=== PATIENT | male | born 1970 | race Caucasian/White ===

== ENCOUNTER 2016-06-14 19:58 | Emergency (ER) | payer MEDICAID ==
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
--- NOTE | 2016-06-14 21:03 | CPEKG ---
Heart Rate: 77 RR Interval: 779 P-R Interval: 184 QRSD Interval: 104 QT Interval: 412 QTC Interval: 467 P Cardale: 59 QRS Cardale: -17 T Wave Cardale: 50 EKG Severity - OTHERWISE NORMAL ECG - EKG Impression: SINUS RHYTHM EKG Impression: BORDERLINE LEFT AXIS DEVIATION Electronically Signed By: Lola Trent 14-Jun-2016 22:36:51
[2016-06-14 21:14] LABS: ANION GAP 17 mEq/L (8-16); CALCIUM 8.7 mg/dL (8.5-10.4); CARBON DIOXIDE 23 mEq/l (22-31); CHLORIDE 106 mEq/L (97-110); CREATININE 0.7 mg/dL (0.7-1.3); GLOMERULAR FILTRATION RATE > 60; GLUCOSE 84 mg/dL (70-100); POTASSIUM 5.4 mEq/L (3.5-5.2); SODIUM 146 mEq/L (134-144); SPECIMEN HEMOLYSIS 163
[2016-06-14 21:22] LABS: ETHANOL SERUM 336 mg/dL (0-10)
[2016-06-14 22:10] LABS: % IMMATURE GRANULYOCYTES 0.3 % (0.0-1.1); ABSOLUTE IMMATURE GRANULOCYTES 0.02 10^3/uL (0.00-0.10); ADD DIFF? NO; ADD MORPH? NO; ADD SCAN? NO; ATYPICAL LYMPHOCYTE FLAG 30 (0-99); FRAGMENT RBC FLAG 0 (0-99); HEMATOCRIT 48.4 % (40.0-51.0); HEMOGLOBIN 17.1 g/dL (13.7-17.5); LEFT SHIFT FLG 0 (0-99); LIPEMIA HEMOLYSIS FLAG 90 (0-99); MEAN CELL HEMOGLOBIN 32.8 pg (27.9-34.1); MEAN CELL HEMOGLOBIN CONCENTR. 35.3 g/dL (32.4-36.7); MEAN CELL VOLUME 92.7 fL (81.5-99.8); MEAN PLATELET VOLUME 9.4 fL (8.7-11.7); PLATELET CLUMPS FLAG 0 (0-99); PLATELET COUNT 180 10^3/uL (150-400); RED BLOOD CELL COUNT 5.22 10^6/uL (4.40-6.38); RED CELL DISTRIBUTION WIDTH 13.2 % (11.5-15.2)
[2016-06-15 04:07] VITALS: RESP 16
[2016-06-15 04:42] VITALS: TEMP 98.1
[2016-06-15 06:34] VITALS: BP 129/81; PULSE 91; O2SAT 94
== END 2016-06-15 06:35 | disposition home or self-care (01) ==
LOC: EDUNIT#
DX: F10.120 Alcohol abuse with intoxication, uncomplicated (principal); F17.200 Nicotine dependence, unspecified, uncomplicated
CPT/HCPCS: G0480

== ENCOUNTER 2016-07-12 13:24 | Emergency (ER) | payer MEDICAID ==
[2016-07-12 13:53] VITALS: RESP 16
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
[2016-07-12] MEDS ORDERED: HYDROCODONE/APAP 5/325 TAB PO ONE (16:08)
[2016-07-12] MEDS ORDERED: HYDROCODONE/APAP 5/325 TAB ONE (16:09)
[2016-07-12 16:55] VITALS: BP 121/97; PULSE 127; TEMP 97.9; O2SAT 92
== END 2016-07-12 16:55 | disposition home or self-care (01) ==
LOC: EDUNIT#
DX: H92.01 Otalgia, right ear (principal); R51 Headache; F17.200 Nicotine dependence, unspecified, uncomplicated

== ENCOUNTER 2016-07-19 04:01 | Emergency (ER) | payer MEDICAID ==
[2016-07-19 02:59] VITALS: RESP 18
--- NOTE | 2016-07-19 05:11 | EDPHY ---
H & P Stated Complaint: migraine +photophobia, hx of migraines for months HPI/ROS: HPI CHIEF COMPLAINT: "I AM HAVING A MIGRAINE HEADACHE" HISTORY OF PRESENT ILLNESS: this patient 46-year-old male, homeless, presents emergency room for migraine headache. Patient tells me that he has had a migraine headache for months. He tells me that he came into the emergency room this evening due to the headache going on for 24 hours. He is tells me that he is at the homeless correction. He states from the mid he woke up this morning he has had a burning sensation headache across the top of his head. He tells me this is exactly like his previous migraine headaches. He has endorse photophobia however denies nausea vomiting. Denies neck pain, denies stiff neck , denies fever, denies chest pain or shortness of breath denies trauma. Of note this patient was just here in the emergency room at the end of June for trauma to his ear for many ear bud. Past Medical History: Migraine headaches, scrotal cellulitis Past Surgical History: Wrist surgery Social History: Homeless, denies illicit drug use alcohol tobacco products Family History: noncontributory ROS REVIEW OF SYSTEMS: A comprehensive 10 point review of systems is otherwise negative aside from elements mentioned in the history of present illness. Exam Constitutional triage nursing summary reviewed, vital signs reviewed, awake/ alert. Eyes normal conjunctivae and sclera, EOMI, PERRLA. HENT normal inspection, atraumatic, moist mucus membranes, no epistaxis, neck supple/ no meningismus, no raccoon eyes. Respiratory clear to auscultation bilaterally, normal breath sounds, no respiratory distress, no wheezing. Cardiovascular rate normal, regular rhythm, no murmur, no edema, distal pulses normal. Gastrointestinal soft, non-tender, no rebound, no guarding, normal bowel sounds, no distension, no pulsatile mass. Genitourinary no CVA tenderness. Musculoskeletal no midline vertebral tenderness, full range of motion, no calf swelling, no tenderness of extremities, no meningismus, good pulses, neurovascularly intact. Skin pink, warm, & dry, no rash, skin atraumatic. Neurologic awake, alert and oriented x 3, AAOx3, moves all 4 extremities equally, motor intact, sensory intact, CN II-XII intact, normal cerebellar, normal vision, normal speech. Psychiatric normal mood/affect. Heme/Lymph/Immune no lymphadenopathy. Differential Diagnosis: Includes but is not limited to in a particular order, migraine headache, tension headache, cluster headache, intracranial bleed, brain tumor, no evidence of meningitis. Medical Decision Making: This patient had an IV established be medicated with migraine medications however no narcotics, he will receive IV fluids, Toradol, Decadron, Reglan, Benadryl. And will re-evaluate him. He will have a CT scan of his head to rule out significant abnormality that may cause a headache including brain bleed or tumor. However his neurological exam is unremarkable it is unlikely that he has a tumor or bleed. And his story is similar to his previous migraines. Re-evaluation: CT scan of the head without IV contrast. The results of the study are negative for anything acute specifically no tumor bleed. The study was read by Dr. Herrera I viewed the images myself on the PACS system. 0611: re-evaluation at this time this patient is resting comfortably his headache is greatly improved. He tells me initially was 9/10 it is now 2/10 after migraine cocktail. His neurological exam is unremarkable specifically is no focal neuro deficit. His CT scan head is unremarkable. Vital signs are stable. He is agreeable discharge home. He does understand if he develops worsening headache, fever, vomiting or any worsening symptoms questions concerns he should return to the ER. Source: Patient - Personal History Current Tetanus/Diphtheria Vaccine: Unsure Current Tetanus Diphtheria and Acellular Pertussis (TDAP): Unsure Tetanus Vaccine Date: < 10 years - Medical/Surgical History Hx Asthma: No Hx Chronic Respiratory Disease: No Hx Diabetes: No Hx Cardiac Disease: No Hx Renal Disease: No Hx Cirrhosis: No Hx Alcoholism: No Hx HIV/AIDS: No Hx Splenectomy or Spleen Trauma: No Other PMH: PMH: Anxiety, depression, CHI, migraines. PSH: RIGHT WRIST SURGERY - Social History Smoking Status: Current every day smoker Constitutional: Initial Vital Signs Temperature (C) 36.4 C 07/19/16 02:49 Heart Rate 90 07/19/16 02:49 Respiratory Rate 18 07/19/16 02:49 Blood Pressure 161/94 H 07/19/16 02:49 O2 Sat (%) 93 07/19/16 02:49 O2 Delivery Mode Room Air Allergies/Adverse Reactions: No Known Allergies Allergy (Verified 07/19/16 02:55) Home Medications: Medication Instructions Recorded Ibuprofen [Motrin (*)] 800 mg PO Q6-8PRN #7 tab 07/19/16 Departure - Departure Disposition: Home, Routine, Self-Care Clinical Impression: Migraine Qualifiers: Migraine type: unspecified Status migrainosus presence: without status migrainosus Intractability: not intractable Qualifier Code: (G43.909) Migraine, unspecified, not intractable, without status migrainosus Condition: Good Instructions: Migraine Headache (ED) Additional Instructions: 1. Stay well-hydrated drink lots of fluids. 2. stay in a very low stimulus environment. 3. Return emergency room if develops severe pain nausea vomiting. Referrals: Ann-Marie Lane MD [Primary Care Provider] - As per Instructions Prescriptions: Ibuprofen [Motrin (*)] 800 mg PO Q6-8PRN #7 tab
[2016-07-19] MEDS ORDERED: ONDANSETRON 4 MG/2 ML VIAL IVP ONE (05:19)
[2016-07-19] MEDS ORDERED: METOCLOPRAMIDE 10 MG/2 ML VIAL IVP ONE (05:19)
[2016-07-19] MEDS ORDERED: NS 1,000 ML IV ONE (05:19)
[2016-07-19] MEDS ORDERED: DEXAMETHASONE 10 MG/ML VIAL IVP ONE (05:19)
[2016-07-19] MEDS ORDERED: KETOROLAC 30 MG/1 ML SDV IVP ONE (05:19)
[2016-07-19 07:28] VITALS: BP 136/80; PULSE 74; TEMP 98.6; O2SAT 97
--- NOTE | 2016-07-19 13:46 | CT ---
Unenhanced CT Scan of the Brain Clinical History: 46-year-old male presenting to the ED complaining of a migraine headache for 24 hours and photophobia. Technique: Standard unenhanced axial CT images were acquired from the skull base to the skull vertex, reformatted at 5.00- and 1.50-mm increments, and reviewed in bone, brain, and subdural windows. The DFOV is 25.7 cm. Sagittal and paracoronal reconstructed images were reviewed on the workstation. A dose reduction protocol was used. Comparison study: Unenhanced CT scan of the brain, dated April 07, 2016. Findings: Again, the ventricles and basilar cisterns are normal in size and symmetrical in configuration. There is no midline shift, or other evidence of mass effect. There is no acute or subacute abnormal intra- or extraaxial blood collection, or infarction. The brainstem and cerebellum are normal. The craniocervical junction, sella turcica, pineal gland, and the orbits are unremarkable. There are tiny mucous retention cysts once again seen within the maxillary sinuses. The other paranasal sinuses are patent, as are the mastoids. The calvarium is normal. Impression: There is no acute intracranial abnormality, or substantial change from April 07, 2106. If there is further clinical concern regarding the patient's symptoms, MR imaging could be considered. I have provided a preliminary interpretation to Dr. Joaquín Segundo at 6:00 a.m. on Thursday, July 19, 2016, regarding the above findings. My final interpretation is concordant with my initial impression. POS99 [id number] MTDD
== END 2016-07-19 07:28 | disposition home or self-care (01) ==
LOC: FIMAGING 04:01 → EDSTATUS 04:03 → FIMAGING 04:04 → EDSTATUS 04:12
DX: G43.909 Migraine, unspecified, not intractable, without status migrainosus (principal); F17.200 Nicotine dependence, unspecified, uncomplicated
CPT/HCPCS: 96374; J1200; J1885; J2405; J2765

== ENCOUNTER 2016-07-24 22:47 | Emergency (ER) | payer MEDICAID ==
[2016-07-24 22:58] VITALS: TEMP 98.4
[2016-07-24] MEDS ORDERED: NS 2,000 ML IV ONE (23:39)
[2016-07-24 23:46] LABS: % IMMATURE GRANULYOCYTES 0.5 % (0.0-1.1); ABSOLUTE IMMATURE GRANULOCYTES 0.05 10^3/uL (0.00-0.10); ADD DIFF? NO; ADD MORPH? NO; ADD SCAN? NO; ATYPICAL LYMPHOCYTE FLAG 10 (0-99); FRAGMENT RBC FLAG 0 (0-99); HEMATOCRIT 49.5 % (40.0-51.0); HEMOGLOBIN 17.7 g/dL (13.7-17.5); LEFT SHIFT FLG 0 (0-99); LIPEMIA HEMOLYSIS FLAG 90 (0-99); MEAN CELL HEMOGLOBIN 32.3 pg (27.9-34.1); MEAN CELL HEMOGLOBIN CONCENTR. 35.8 g/dL (32.4-36.7); MEAN CELL VOLUME 90.3 fL (81.5-99.8); MEAN PLATELET VOLUME 9.5 fL (8.7-11.7); PLATELET CLUMPS FLAG 0 (0-99); PLATELET COUNT 169 10^3/uL (150-400); RED BLOOD CELL COUNT 5.48 10^6/uL (4.40-6.38); RED CELL DISTRIBUTION WIDTH 13.2 % (11.5-15.2)
[2016-07-24] MEDS ORDERED: ONDANSETRON 4 MG/2 ML VIAL IVP ONE (23:49)
[2016-07-24] MEDS ORDERED: TDAP ADULT 0.5 ML INJ (BOOSTRIX) IM ONE (23:49)
--- NOTE | 2016-07-24 23:54 | EDPHY ---
H & P Stated Complaint: Polysub Withdrawal/ infection left arm Time Seen by Provider: 07/24/16 23:17 HPI/ROS: HPI The patient presents feeling generally unwell after a drinking and drug binge. He was feeling down and upset so last night began drinking heavily, then used crack cocaine and methamphetamine as throughout the day today. He says he was trying to treat his anxiety and pain and that is why he used. He comes in now because he is feeling not himself and not composed. He is also concerned about his left antecubital fossa where he used a needle to inject beer into his arm.. REVIEW OF SYSTEMS Constitutional: No fever, no chills. Eyes: No discharge. ENT: No sore throat. Cardiovascular: No chest pain, no palpitations. Respiratory: No cough, no shortness of breath. Gastrointestinal: No abdominal pain, no vomiting. Genitourinary: No hematuria. Musculoskeletal: No back pain. Skin: No rashes. Neurological: No headache. PMHx: History of migraine headache Soc Hx: Alcohol abuse, homeless, [facility] PHYSICAL General Appearance: Alert, no distress Eyes: Pupils equal and round no pallor or injection ENT, Mouth: Mucous membranes moist Respiratory: There are no retractions, lungs are clear to auscultation Cardiovascular: Regular rate and rhythm Gastrointestinal: Abdomen is soft and non-tender, no masses, bowel sounds normal Neurological: A&O, moves all extremities Skin: Warm and dry, left antecubital fossa with slight erythema with no warmth , tenderness, fluctuance Musculoskeletal: Neck is supple non tender Extremities: symmetrical, full range of motion Psychiatric: Patient is oriented X 3, there is no agitation Source: Patient Exam Limitations: No limitations - Personal History Current Tetanus/Diphtheria Vaccine: Unsure Current Tetanus Diphtheria and Acellular Pertussis (TDAP): Unsure Tetanus Vaccine Date: < 10 years - Medical/Surgical History Hx Asthma: No Hx Chronic Respiratory Disease: No Hx Diabetes: No Hx Cardiac Disease: No Hx Renal Disease: No Hx Cirrhosis: No Hx Alcoholism: No Hx HIV/AIDS: No Hx Splenectomy or Spleen Trauma: No Other PMH: PMH: Anxiety, depression, CHI, migraines, polysubtance abuse. PSH: RIGHT WRIST SURGERY - Social History Smoking Status: Current every day smoker Constitutional: Initial Vital Signs Temperature (C) 36.9 C 07/24/16 22:53 Heart Rate 98 07/24/16 22:53 Respiratory Rate 14 07/24/16 22:53 Blood Pressure 159/110 H 07/24/16 22:53 O2 Sat (%) 94 07/24/16 22:53 O2 Delivery Mode Room Air Allergies/Adverse Reactions: No Known Allergies Allergy (Verified 07/24/16 22:53) Home Medications: Medication Instructions Recorded Ibuprofen [Motrin (*)] 800 mg PO Q6-8PRN #7 tab 07/19/16 Medical Decision Making ED Course/Re-evaluation: In the emergency room, the patient received 2 L of IV fluids and Zofran for nausea. He had basic labs checked and they were unremarkable. He was reassessed by me and became quite angry and upset that we were not giving him any medications such as fentanyl, Dilaudid, or Demerol to treat his pain. He escalated quickly and said that he was just going to go back on the street to self medicate. I explained that his conditions are quite chronic and we cannot fix them in the emergency room, thus treatment with opiate pain medication here would not be beneficial. I have asked him to follow up with his regular doctors. He required security to escort him out of the emergency room. This seems entirely consistent with his previous visits. Differential Diagnosis: This is a 46-year-old man am with depression, homelessness, alcohol abuse who presents after a drug and alcohol binge for the last 24 hours. Now generally feeling unwell. On exam, he has normal vital signs, he is generally well- appearing. His abdominal exam is benign. He does have some redness of his left antecubital fossa where he injected alcohol last night. However, this is not appear infected. Differential diagnosis includes polysubstance abuse, drug-seeking behavior, anxiety and depression. - Data Points Laboratory Results: Laboratory Results 07/24/16 23:30 07/24/16 23:39 07/24/16 07/24/16 23:39 23:30 WBC 9.19 10^3/uL (3.80-9.50) RBC 5.48 10^6/uL (4.40-6.38) Hgb 17.7 H g/dL (13.7-17.5) Hct 49.5 % (40.0-51.0) MCV 90.3 fL (81.5-99.8) MCH 32.3 pg (27.9-34.1) MCHC 35.8 g/dL (32.4-36.7) RDW 13.2 % (11.5-15.2) Plt Count 169 10^3/uL (150-400) MPV 9.5 fL (8.7-11.7) Neut % (Auto) 69.4 % (39.3-74.2) Lymph % (Auto) 15.3 % (15.0-45.0) [place] % (Auto) 13.9 H % (4.5-13.0) Eos % (Auto) 0.4 L % (0.6-7.6) Baso % (Auto) 0.5 % (0.3-1.7) Nucleat RBC Rel Count 0.0 % (0.0-0.2) Absolute Neuts (auto) 6.36 10^3/uL (1.70-6.50) Absolute Lymphs (auto) 1.41 10^3/uL (1.00-3.00) Absolute Monos (auto) 1.28 H 10^3/uL (0.30-0.80) Absolute Eos (auto) 0.04 10^3/uL (0.03-0.40) Absolute Basos (auto) 0.05 10^3/uL (0.02-0.10) Absolute Nucleated RBC 0.00 10^3/uL (0-0.01) Immature Gran % 0.5 % (0.0-1.1) Immature Gran # 0.05 10^3/uL (0.00-0.10) Sodium 140 mEq/L (134-144) Potassium 4.1 mEq/L (3.5-5.2) Chloride 101 mEq/L (97-110) Carbon Dioxide 23 mEq/l (22-31) Anion Gap 16 mEq/L (8-16) BUN 23 mg/dL (7-23) Creatinine 0.8 mg/dL (0.7-1.3) Estimated GFR > 60 Glucose 71 mg/dL (70-100) Calcium 9.2 mg/dL (8.5-10.4) Medications Given: Discontinued Medications Diphtheria/Tetanus/Acell Pertussis (Boostrix) 0.5 ml IM .ONCE ONE Stop: 07/24/16 23:50 Last Admin: 07/25/16 00:10 Dose: 0.5 ml Sodium Chloride (Ns) 2,000 mls @ 0 mls/hr IV ONCE ONE PRN Reason: Wide Open Stop: 07/24/16 23:40 Last Admin: 07/24/16 23:40 Dose: 2,000 mls Ondansetron HCl (Zofran) 4 mg IVP EDNOW ONE Stop: 07/24/16 23:50 Last Admin: 07/25/16 00:09 Dose: 4 mg Departure - Departure Disposition: Home, Routine, Self-Care Clinical Impression: Polysubstance abuse, Drug-seeking behavior Condition: Good Instructions: Polysubstance Abuse (ED) Additional Instructions: We cannot give you any opiate pain medications for chronic conditions in the emergency room. Referrals: [facility] [Outside] - As per Instructions
[2016-07-24 23:56] LABS: ANION GAP 16 mEq/L (8-16); CALCIUM 9.2 mg/dL (8.5-10.4); CARBON DIOXIDE 23 mEq/l (22-31); CHLORIDE 101 mEq/L (97-110); CREATININE 0.8 mg/dL (0.7-1.3); GLOMERULAR FILTRATION RATE > 60; GLUCOSE 71 mg/dL (70-100); POTASSIUM 4.1 mEq/L (3.5-5.2); SODIUM 140 mEq/L (134-144)
[2016-07-25 02:14] VITALS: BP 150/95; PULSE 93; RESP 16; O2SAT 93
== END 2016-07-25 02:14 | disposition home or self-care (01) ==
DX: F19.10 Other psychoactive substance abuse, uncomplicated (principal); F17.200 Nicotine dependence, unspecified, uncomplicated; Z72.89 Other problems related to lifestyle; Z23 Encounter for immunization
CPT/HCPCS: 96374; J2405